=== PATIENT | male | born 1970 | race Hispanic/Latino ===

== ENCOUNTER 2020-01-25 09:46 | Emergency (ER) | payer BC ==
[2020-01-25 11:02] LABS: Basophils % (Auto) 0.8 % (0.0-1.8); Eosinophils # (Auto) 0.2 K/mm3 (0.0-0.4); Eosinophils % (Auto) 5.9 % (0.0-4.3); Hematocrit 44.6 % (35.5-45.6); Hemoglobin 15.3 gm/dl (11.8-15.2); Lymphocytes # (Auto) 1.7 K/mm3 (1.2-5.4); Lymphocytes % (Auto) 45.1 % (13.4-35.0); Mean Corpuscular HGB Conc 34 % (32-34); Mean Corpuscular Volume 91 fl (84-94); Monocytes # (Auto) 0.3 K/mm3 (0.0-0.8); Monocytes % (Auto) 8.1 % (0.0-7.3); Platelet Count 223 K/mm3 (140-440); Red Cell Distribution Width 12.2 % (13.2-15.2)
[2020-01-25 11:23] LABS: BUN/Creatinine Ratio 16; Blood Urea Nitrogen 14 mg/dL (9-20); Calcium 9.6 mg/dL (8.4-10.2); Hemolysis Index 12
--- NOTE | 2020-01-25 11:31 | XRay Report ---
CHEST 2 VIEWS INDICATION / CLINICAL INFORMATION: Chest Pain. COMPARISON: None available. FINDINGS: SUPPORT DEVICES: None. HEART / MEDIASTINUM: No significant abnormality. LUNGS / PLEURA: No significant pulmonary or pleural abnormality. No pneumothorax. ADDITIONAL FINDINGS: No significant additional findings. IMPRESSION: 1. No acute findings. Signer Name: Rambo Osborne MD Signed: 01/25/2020 11:26 AM Workstation Name: [id number]
[2020-01-25] MEDS ORDERED: KETOROLAC 30 MG/1 ML INJ IM ONE (14:07)
[2020-01-25] MEDS ORDERED: ACETAMINOPHEN 325 MG TAB PO ONE (14:07)
--- NOTE | 2020-01-25 14:56 | Emergency Department Report ---
ED Chest Pain HPI - General Chief Complaint: Chest Pain Stated Complaint: SEVERE CHEST PAIN PUI?: No Time Seen by Provider: 01/25/20 13:53 Source: patient Mode of arrival: Ambulatory Limitations: No Limitations - History of Present Illness Initial Comments: The patient was evaluated in the emergency department for symptoms described in the history of present illness. He/she was evaluated in the context of the global COVID-19 pandemic, which necessitated consideration that the patient might be at risk for infection with the virus that causes COVID-19. Institutional protocols and algorithms that pertain to the evaluation of patients at risk for COVID-19 are in a state of rapid change based on information released by regulatory bodies including the CDC and federal and state organizations. These policies and algorithms were followed during the patient's care in the emergency department. Please note that these policies, procedures and recommendations changed on a rapid basis. The patient is a 49-year-old gentleman. He is right-hand dominant. He denies chronic medical conditions. 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 He follows with [facility]. The patient reports heavy lifting and multiple repetitive range of motion at work. He presents to the ER with a complaint of nontraumatic left anterior chest wall pain, and left lateral thorax pain. This pain started last night. The pain does not radiate anywhere. The pain increases with palpation and range of motion. Specifically, rotation of the shoulder, elevation of the shoulder, abduction, abduction, rotation of the shoulder, palpation of the affected region all increases pain. He denies headache, neck pain, abdominal pain, exertional shortness of breath, vomiting, diaphoresis, posterior leg pain, leg swelling, and he denies DVT and pulmonary embolism risk factors. He does not smoke, he has not recently consumed aspirin, and there is no family history of DVT, pulmonary embolism, or coronary artery disease. His pain has been present since 9:00 last night. Its been constant, but intermittent in intensity, worsened with the aforementioned muscular range of motion. He was treated with acetaminophen and ketorolac in the emergency room, which greatly improved his symptoms. MD Complaint: chest pain -: Gradual, hour(s) Pain Location: left chest Pain Radiation: none Severity: moderate Severity scale (0 -10): 10 Quality: aching Consistency: constant Improves With: medication-other, rest Worsens With: palpation, movement re: other (Denies vomiting, diaphoresis, exertional shortness of breath) Aspirin use within the Past 7 Days: (0) No - Related Data Previous Rx's Medication Instructions Recorded Last Taken Type Acetaminophen [Non-Aspirin Extra 500 mg PO Q6HR PRN #30 tablet 01/25/20 Unknown Rx Strength] Ibuprofen [Motrin] 600 mg PO Q8H PRN #30 tablet 01/25/20 Unknown Rx Allergies Allergy/AdvReac Type Severity Reaction Status Date / Time No Known Allergies Allergy Unverified 01/25/20 09:47 Heart Score - HEART Score History: Slightly suspicious EKG: Non-specific Age: 45-65 Risk factors: No known risk factors Troponin: < normal limit HEART Score: 2 - Critical Actions Critical Actions: 0-3 pts:0.9-1.7%risk of adverse cardiac event.Candidate for discharge ED Review of Systems ROS: Stated complaint: SEVERE CHEST PAIN Other details as noted in HPI Constitutional: denies: fever Eyes: denies: eye discharge ENT: denies: congestion Respiratory: denies: cough Cardiovascular: chest pain Gastrointestinal: denies: abdominal pain, nausea, vomiting, hematemesis, melena, hematochezia Musculoskeletal: myalgia Skin: denies: lesions Neurological: denies: weakness Psychiatric: anxiety Hematological/Lymphatic: denies: easy bleeding ED Past Medical Hx - Past Medical History Previous Medical History?: No - Surgical History Past Surgical History?: Yes Additional Surgical History: ankle. knee - Social History Smoking Status: Never Smoker - Medications Home Medications: Home Medications Medication Instructions Recorded Confirmed Last Taken Type Acetaminophen [Non-Aspirin Extra 500 mg PO Q6HR PRN #30 tablet 01/25/20 Unknown Rx Strength] Ibuprofen [Motrin] 600 mg PO Q8H PRN #30 tablet 01/25/20 Unknown Rx ED Physical Exam - General Limitations: No Limitations General appearance: alert, in no apparent distress - Head Head exam: Present: atraumatic, normocephalic - Eye Eye exam: Present: normal appearance, EOMI. Absent: nystagmus - ENT ENT exam: Present: normal exam, normal orophraynx, mucous membranes moist, normal external ear exam - Neck Neck exam: Present: normal inspection, full ROM. Absent: tenderness, meningismus - Respiratory Respiratory exam: Present: normal lung sounds bilaterally, chest wall tenderness, other (There is exquisitely reproducible lateral and anterior left- sided costal chondral tenderness, without rebound, or guarding, redness, pus or streaking. This pain is worsened with abduction, adduction of the left upper extremity, and rotation superiorly, and inferiorly of the left arm/shoulder.). Absent: respiratory distress, wheezes, rales, rhonchi, stridor - Cardiovascular Cardiovascular Exam: Present: regular rate, normal rhythm, normal heart sounds. Absent: bradycardia, tachycardia, irregular rhythm, systolic murmur, diastolic murmur, rubs, gallop - GI/Abdominal GI/Abdominal exam: Present: soft. Absent: distended, tenderness, guarding, rebound, rigid, pulsatile mass - Rectal Rectal exam: Present: deferred - Extremities Exam Extremities exam: Present: normal inspection, full ROM, other (2+ pulses noted in the bilateral upper and lower extremities. There is no palpable cord. negative Homans sign. Muscular compartments are soft. The pelvis is stable.). Absent: pedal edema, calf tenderness - Back Exam Back exam: Present: normal inspection, full ROM. Absent: tenderness, CVA tenderness (R), CVA tenderness (L), paraspinal tenderness, vertebral tenderness - Neurological Exam Neurological exam: Present: alert, normal gait, other (No facial droop. Tongue midline. Extraocular movements intact bilaterally. Facial sensation intact to light touch in V1, V2, V3 distribution bilaterally. 5 and a 5 strength in 4 extremities. Sensation intact to light touch in 4 extremities.). Absent: motor sensory deficit - Psychiatric Psychiatric exam: Present: normal affect, normal mood - Skin Skin exam: Present: warm, dry, intact, normal color. Absent: rash ED Course Vital Signs 01/25/20 01/25/20 01/25/20 09:47 13:56 14:00 Temperature 97.8 F Pulse Rate 81 58 L 50 L Respiratory 22 9 L 13 Rate Blood Pressure 132/82 Blood Pressure 167/112 [Right] O2 Sat by Pulse 99 96 Oximetry 01/25/20 01/25/20 01/25/20 14:15 14:30 14:45 Temperature Pulse Rate 61 57 L Respiratory 12 10 L Rate Blood Pressure 132/82 140/92 140/92 Blood Pressure [Right] O2 Sat by Pulse 96 98 96 Oximetry ETHAN score - Ethan Score Age > 65: (0) No Aspirin use within the Past 7 Days: (0) No 3 or more CAD Risk Factors: (0) No 2 or more Angina events in past 24 hrs: (0) No Known CAD with more than 50% Stenosis: (0) No Elevated Cardiac Markers: (0) No ST Deviation Greater than 0.5mm: (0) No ETHAN Score: 0 ED Medical Decision Making - Lab Data Result diagrams: 01/25/20 10:50 01/25/20 10:50 Vital Signs 01/25/20 01/25/20 01/25/20 09:47 13:56 14:00 Temperature 97.8 F Pulse Rate 81 58 L 50 L Respiratory 22 9 L 13 Rate Blood Pressure 132/82 Blood Pressure 167/112 [Right] O2 Sat by Pulse 99 96 Oximetry 01/25/20 01/25/20 01/25/20 14:15 14:30 14:45 Temperature Pulse Rate 61 57 L Respiratory 12 10 L Rate Blood Pressure 132/82 140/92 140/92 Blood Pressure [Right] O2 Sat by Pulse 96 98 96 Oximetry Lab Results 01/25/20 01/25/20 01/25/20 Range/Units 10:50 10:50 13:58 WBC 3.7 L (4.5-11.0) K/mm3 RBC 4.90 (3.65-5.03) M/mm3 Hgb 15.3 H (11.8-15.2) gm/dl Hct 44.6 (35.5-45.6) % MCV 91 (84-94) fl MCH 31 (28-32) pg MCHC 34 (32-34) % RDW 12.2 L (13.2-15.2) % Plt Count 223 (140-440) K/mm3 Lymph % (Auto) 45.1 H (13.4-35.0) % [place] % (Auto) 8.1 H (0.0-7.3) % Eos % (Auto) 5.9 H (0.0-4.3) % Baso % (Auto) 0.8 (0.0-1.8) % Lymph # (Auto) 1.7 (1.2-5.4) K/mm3 [place] # (Auto) 0.3 (0.0-0.8) K/mm3 Eos # (Auto) 0.2 (0.0-0.4) K/mm3 Baso # (Auto) 0.0 (0.0-0.1) K/mm3 Seg Neutrophils % 40.1 (40.0-70.0) % Seg Neutrophils # 1.5 L (1.8-7.7) K/mm3 Sodium 139 (137-145) mmol/L Potassium 3.9 (3.6-5.0) mmol/L Chloride 105.0 (98-107) mmol/L Carbon Dioxide 25 (22-30) mmol/L Anion Gap 13 mmol/L BUN 14 (9-20) mg/dL Creatinine 0.9 (0.8-1.3) mg/dL Estimated GFR > 60 ml/min BUN/Creatinine Ratio 16 % Glucose 121 H (75-100) mg/dL Calcium 9.6 (8.4-10.2) mg/dL Troponin T < 0.010 < 0.010 (0.00-0.029) ng/mL - EKG Data -: EKG Interpreted by [place] EKG shows normal: sinus rhythm Rate: normal - EKG Data When compared to previous EKG there are: previous EKG unavailable 01/25/20 15:04 EKG #1 shows a sinus rhythm, normal axis, normal intervals, Q waves noted in lead III, the EKG is abnormal, it is not consistent with a STEMI, there is no p rior for comparison. EKG #2 is unchanged from prior, persistent inferior lead Q waves, bradycardic, rate 49 bpm, OR interval 204 ms. Both EKGs nonspecifically abnormal, however no prior for comparison, neither EKG is consistent with STEMI - Radiology Data Radiology results: report reviewed, image reviewed Print Report Referring Physician: ED DOC Patient Name: NIKOLAS DAMIAN Date of : 1970 Sex: Male Report Date: 2020-01-25 Report Status: Finalized Findings [facility] [address] [place] [address] XRay Report Signed Patient: NIKOLAS DAMIAN JR MR#: [id number] : 1970 Acct:[id number] Age/Sex: 49 / M ADM Date: 01/25/20 Loc: ED Attending Dr: Demario harvey Physician: ED DOC, MD Date of Service: 01/25/20 Procedure(s): XR chest routine 2V Accession Number(s): [id number] cc: ED DOC, Fluoro Time In Minutes: CHEST 2 VIEWS INDICATION / CLINICAL INFORMATION: Chest Pain. COMPARISON: None available. FINDINGS: SUPPORT DEVICES: None. HEART / MEDIASTINUM: No significant abnormality. LUNGS / PLEURA: No significant pulmonary or pleural abnormality. No pneumothorax. ADDITIONAL FINDINGS: No significant additional findings. IMPRESSION: 1. No acute findings. 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 Troponin negative x2, patient presents more than 12 hours after symptom onset, patient at low risk for major adverse cardiac event as per heart score. He felt improved after appropriate pain medication, and upon reassessment, was n oted to be playing with his cellular phone. Patient counseled that he is low risk for major adverse cardiac event, however, we have recommended follow-up with outpatient cardiology or primary care to complete a cardiac risk ratification. As per this hospital/departments policy and procedure protocol, the patient's information was faxed and transmitted to [facility] cardiology, where the patient should be contacted to have close outpatient follow-up arranged to complete a cardiac risk ratification. Liver, the patient is also counseled to contact the aforementioned cardiology group, to secure close outpatient follow- up, to complete a cardiac risk ratification. Critical care attestation.: If time is entered above; I have spent that time in minutes in the direct care of this critically ill patient, excluding procedure time. ED Disposition Clinical Impression: Chest wall pain Disposition: DC-01 TO HOME OR SELFCARE Is pt being admited?: No Does the pt Need Aspirin: No Condition: Stable Instructions: Chest Pain (ED), Chest Wall Pain, [id number], Nonspecific Chest Pain, Adult Additional Instructions: Rest, avoid heavy lifting, and avoid strenuous physical activities. Take the prescribed pain medications as needed and directed. Patient may alternate ice packs and heat packs as needed for pain. Recommend follow-up with a real estate specialist within the next 2 to 3 days. Please return to the emergency room right away with new pain, worsened pain, migration of pain, shortness of breath, sweating, intractable nausea or vomiting, or any new, worsened or different symptoms not present on the initial emergency room evaluation. Referrals: LADONNA ISAAC [Other] - 3-5 Days HUDSON MALLORY MD [Staff Physician] - 3-5 Days [facility] [Provider Group] - 3-5 Days Forms: Work/School Release Form(ED)
[2020-01-25 17:41] VITALS: BP 126/81
== END 2020-01-25 15:25 | disposition home or self-care (01) ==
LOC: ED 09:46
DX: R07.89 Other chest pain (principal); Z98.890 Other specified postprocedural states; Z79.1 Long term (current) use of non-steroidal anti-inflammatories (NSAID); Z79.899 Other long term (current) drug therapy
CPT/HCPCS: 36415; 71046; 80048; 84484; 85025; 93005; 96372; 99283; J1885